=== PATIENT | male | born 1975 | race Caucasian/White ===

== ENCOUNTER 2018-04-28 11:38 | Emergency (ER) | payer MEDICAID ==
[~2018-04-28] VITALS: Ht 180.3 cm; Wt 83.6 kg
[2018-04-28 11:40] VITALS: BP 132/93
[2018-04-28] MEDS ORDERED: IBUPROFEN 800 MG TABLET PO PRN (12:00)
[2018-04-28] MEDS ORDERED: IBUPROFEN 200 MG TABLET ONE (12:17)
== END 2018-04-28 13:07 | disposition home or self-care (01) ==
LOC: ED 13:00
DX: G89.29 Other chronic pain (principal); M25.561 Pain in right knee
CPT/HCPCS: 99284

== ENCOUNTER 2018-07-13 17:27 | Emergency (ER) | payer MEDICAID ==
[~2018-07-13] VITALS: Ht 180.3 cm; Wt 86.3 kg
[2018-07-13 17:58] LABS: BASOPHILS # (AUTO) 0.05 x10^3/uL (0-0.1); BASOPHILS % (AUTO) 1 % (0-1); EOSINOPHILS # (AUTO) 0.34 x10^3/uL (0-0.4); EOSINOPHILS % (AUTO) 4 % (1-7); LYMPHOCYTES # (AUTO) 2.74 x10^3/uL (1-3.4); LYMPHOCYTES % (AUTO) 28 % (22-44); MD NO; MEAN CORPUSCULAR HEMOGLOBIN 31.6 pg (27.5-34.5); MEAN CORPUSCULAR HGB CONC 33.6 g/dL (33.2-36.2); MEAN CORPUSCULAR VOLUME 94.2 fL (81-97); MEAN PLATELET VOLUME 10.4 fL (7.4-10.4); MONOCYTES # (AUTO) 0.77 x10^3/uL (0.2-0.8); MONOCYTES % (AUTO) 8 % (2-9); NEUTROPHILS % (AUTO) 60 % (42-75); PLATELET COUNT 206 x10^3/uL (130-400); RED BLOOD COUNT 4.39 x10^6/uL (4.38-5.82); RED CELL DISTRIBUTION WIDTH 13.6 % (9.4-14.8)
[2018-07-13 18:08] LABS: INTERNATIONAL NORMALIZED RATIO 1.01 (0.93-1.1); PROTHROMBIN TIME 10.4 Seconds (9.6-11.5)
[2018-07-13 18:11] LABS: MICROSCOPIC INDICATED
[2018-07-13 18:11] LABS: ALANINE AMINOTRANSFERASE 91 U/L (12-78); ALBUMIN 4.9 g/dL (3.4-5.0); ANION GAP 10 mmol/L (5-15); CALCIUM 9.3 mg/dL (8.5-10.1); CHLORIDE 103 mmol/L (98-107); CREATININE 1.13 mg/dL (0.7-1.3)
[2018-07-13 18:14] LABS: ALKALINE PHOSPHATASE 66 U/L (45-117); BILIRUBIN,TOTAL 0.4 mg/dL (0.2-1.0); CREATINE KINASE, TOTAL 504 U/L (39-308); TOTAL PROTEIN 9.2 g/dL (6.4-8.2)
[2018-07-13] MEDS ORDERED: AZITHROMYCIN 500 MG TABLET ONE (18:22)
[2018-07-13] MEDS ORDERED: CEFTRIAXONE 250 MG ONE (18:22)
[2018-07-13 18:27] LABS: CULTURE INDICATED? NO
[2018-07-13] MEDS ORDERED: CEFTRIAXONE 250 MG IM ONE (18:30)
[2018-07-13] MEDS ORDERED: AZITHROMYCIN 500 MG TABLET PO ONE (18:30)
[2018-07-13 19:07] VITALS: BP 139/76
== END 2018-07-13 20:06 | disposition home or self-care (01) ==
LOC: ED 18:05
DX: N23 Unspecified renal colic (principal); R31.9 Hematuria, unspecified
CPT/HCPCS: 36415; 74176; 80053; 81001; 82550; 85025; 85610; 85730; 87491; 87591; 96372; 99285; J0696

== ENCOUNTER 2020-10-05 09:20 | Emergency (ER) | payer MEDICAID ==
[~2020-10-05] VITALS: Ht 180.3 cm; Wt 81.0 kg
[2020-10-05 09:22] VITALS: BP 131/80
--- NOTE | 2020-10-05 09:41 | NUR ---
Pt ambulatory to room, steady gait.
[2020-10-05] MEDS ORDERED: SILVER NITRATE STICK TP ONE (09:57)
--- NOTE | 2020-10-05 09:58 | NUR ---
BARRY Nuñez to bedside to assess and administer silver nitraite.
== END 2020-10-05 10:40 | disposition home or self-care (01) ==
LOC: ED 10:30
DX: D18.00 Hemangioma unspecified site (principal)
CPT/HCPCS: 99282